=== PATIENT | female | born 1990 | race Hispanic/Latino ===

== ENCOUNTER 2017-01-21 15:52 | Emergency (ER) | payer MEDICAID ==
[2017-01-21 15:52] VITALS: BMI 41.1
[2017-01-21 16:03] VITALS: RESP 20
[2017-01-21] MEDS ORDERED: Sodium Chloride 0.9% 1,000 ML IV ONE (16:16)
[2017-01-21] MEDS ORDERED: Sodium Chloride 0.9% 1,000 ML ONE (16:38)
--- NOTE | 2017-01-21 16:38 | C.PDOC ---
History Of Present Illness 26 y/o female c/o abdominal pain, vomiting, and diarrhea for 2 days. Patient notes diarrhea that is occasionally yellow, occasionally brown, and watery but non-bloody. Patient notes a fever at 103 and being unable to eat or drink. Patient took no meds for the symptoms. Denies chest pain, palpitations, or SOB. Time Seen by Provider: 01/21/17 16:10 Chief Complaint (Nursing): GI Problem History Per: Patient History/Exam Limitations: no limitations Onset/Duration Of Symptoms: Days (2) Current Symptoms Are (Timing): Still Present Severity: Mild Location Of Pain/Discomfort: Diffuse Quality Of Discomfort: "Pain" Associated Symptoms: Fever, Vomiting, Diarrhea Additional History Per: Patient Past Medical History Reviewed: Historical Data, Nursing Documentation, Vital Signs Vital Signs: Last Vital Signs Temp 98.2 F 01/21/17 15:58 Pulse 85 01/21/17 15:58 Resp 20 01/21/17 15:58 BP 121/78 01/21/17 15:58 Pulse Ox 100 01/21/17 16:40 - Medical History PMH: Anemia (vitamin b intake), Asthma, Hyperthyroidism, Hypothyroidism Denies: Chronic Kidney Disease Surgical History: Tonsillectomy - [facility] INCISE BARTHOLIN'S GLAND (08/22/12) LOCAL DESTR OVA LES NEC (02/20/14) Family History: States: Unknown Family Hx - Social History Hx Tobacco Use: No Hx Alcohol Use: Yes Hx Substance Use: No - Immunization History Hx Tetanus Toxoid Vaccination: No Hx Influenza Vaccination: No Hx Pneumococcal Vaccination: No Review Of Systems Except As Marked, All Systems Reviewed And Found Negative. Constitutional: Positive for: Fever Cardiovascular: Negative for: Chest Pain, Palpitations Respiratory: Negative for: Shortness of Breath Gastrointestinal: Positive for: Vomiting, Abdominal Pain, Diarrhea Physical Exam - Physical Exam Appears: Non-toxic, No Acute Distress (Not too uncomfortable) Skin: Warm, Dry Head: Atraumatic, Normacephalic Oral Mucosa: Dry Cardiovascular: Rhythm Regular (Non-tachycardic), No Murmur Respiratory: Normal Breath Sounds, No Rales, No Rhonchi, No Wheezing Gastrointestinal/Abdominal: Bowel Sounds (Hypoactive), Soft, Other (No localized tenderness or guarding) Neurological/Psych: Oriented x3 ED Course And Treatment - Laboratory Results Result Diagrams: 01/21/17 16:34 01/21/17 16:34 Lab Interpretation: No Acute Changes O2 Sat by Pulse Oximetry: 100 (RA) Pulse Ox Interpretation: Normal Progress Note: Patient treated with normal saline and Zofran IV. Reevaluation Time: 17:27 Reassessment Condition: Improved (Feels much better. No further nausea.) Medical Decision Making Medical Decision Making: Plans: * Blood labs * Zofran * IV fludis * UA Disposition Counseled Patient/Family Regarding: Studies Performed, Diagnosis, Need For Followup, Rx Given - Disposition Referrals: [facility] [Outside] Disposition: HOME/ ROUTINE Disposition Time: 17:28 Condition: IMPROVED Prescriptions: Ondansetron ODT [Zofran ODT] 4 mg PO QID PRN #10 odt PRN Reason: Nausea/Vomiting Instructions: Gastroenteritis (ED) Forms: [facility] (Hungarian) - Clinical Impression Clinical Impression: Gastroenteritis - Scribe Statement The provider has reviewed the documentation as recorded by the Scribsusy lawson All medical record entries made by the Josselinibsusy were at my direction and personally dictated by me. I have reviewed the chart and agree that the record accurately reflects my personal performance of the history, physical exam, medical decision making, and the department course for this patient. I have also personally directed, reviewed, and agree with the discharge instructions and disposition.
[2017-01-21 16:41] LABS: BASO # 0.1 K/uL (0.0-0.2); BASO % 0.7 % (0.0-2.0); EOS # 0.2 K/uL (0.0-0.7); EOS % 2.4 % (0.0-4.0); HEMATOCRIT 35.6 % (34.0-47.0); LYMPH # 2.1 K/uL (1.0-4.3); LYMPH % 21.4 % (20.0-40.0); MEAN CORPUSCULAR HEMOGLOBIN 27.4 pg (27.0-31.0); MEAN PLATELET VOLUME 9.1 fL (7.2-11.7); MONO # 0.5 K/uL (0.0-0.8); MONO % 5.4 % (0.0-10.0); NRBC % 0.1 % (0.0-2.0); RED CELL DISTRIBUTION WIDTH 14.3 % (11.5-14.5); WHITE BLOOD COUNT 9.9 K/uL (4.8-10.8)
[2017-01-21 16:52] LABS: CHLORIDE 101 mmol/L (98-107); POTASSIUM 3.9 mmol/L (3.6-5.2); SODIUM 135 mmol/L (132-148)
[2017-01-21 16:54] LABS: AST/SGOT 24 U/L (14-36); BILIRUBIN,TOTAL 0.4 mg/dL (0.2-1.3); CARBON DIOXIDE 23 mmol/L (22-30); GFR AFRICAN-AMERICAN > 60
[2017-01-21 16:55] LABS: ALB/GLOB RATIO 1.1 (1.0-2.1); ALKALINE PHOSPHATASE 76 U/L (38-126); ALT/SGPT 48 U/L (9-52); BLOOD UREA NITROGEN 11 mg/dL (7-17); CALCIUM 9.1 mg/dl (8.6-10.4); GLUCOSE,RANDOM 84 mg/dL (65-105); TOTAL PROTEIN 8.1 g/dL (6.3-8.3)
[2017-01-21 17:12] LABS: RBC URINE 1 /hpf (0-3); URINE BACTERIA RARE (<OCC); URINE BILIRUBIN NEGATIVE (NEGATIVE); URINE BLOOD NEGATIVE (NEGATIVE); URINE COLOR Yellow (YELLOW); URINE GLUCOSE (UA) NORMAL (Normal); URINE KETONE NEGATIVE (NEGATIVE); URINE LEUKOCYTE ESTERASE TRACE Leu/uL (Negative); URINE PROTEIN NEGATIVE (NEGATIVE); URINE UROBILINOGEN NORMAL mg/dL (0.2-1.0); WBC URINE 12 /hpf (0-5)
[2017-01-21 17:40] VITALS: BP 104/68; PULSE 78; TEMP 97.9; O2SAT 99
== END 2017-01-21 17:59 | disposition home or self-care (01) ==
LOC: C.ER 15:52
DX: K52.9 Noninfective gastroenteritis and colitis, unspecified (principal)
CPT/HCPCS: 80053; 81001; 83690; 84703; 85025; 96361; 96374; 99285; J2405; J7040

== ENCOUNTER 2017-04-09 21:11 | Emergency (ER) | payer MEDICAID ==
[2017-04-09 21:11] VITALS: BMI 41.1
[2017-04-09 21:21] VITALS: RESP 16; TEMP 97.8
[2017-04-09] MEDS ORDERED: Albuterol 0.083% Inhal Sol (2.5 mg/3 mL) UD INH STA (22:48)
--- NOTE | 2017-04-09 22:52 | C.PDOC ---
History Of Present Illness <Jazz Romano - Last Filed: 04/10/17 00:05> <Cesar Watkins - Last Filed: 04/10/17 02:52> 27 year old female with a Hx of asthma and hypothyroidism presents to the ER with a complaint of generalized continuous pleuritic chest pain that worsens with inspiration. Patient states she did not take any of her nebulizer treatments and has not required any treatments for years. Denies use of control, cough, sputum, fever, abdominal pain, nausea, or vomiting. Patient is a low risk by PERC criteria. (Jazz Romano) History Per: Patient History/Exam Limitations: no limitations Onset/Duration Of Symptoms: Days Current Symptoms Are (Timing): Still Present Quality: "Pain" Associated Symptoms: denies: Nausea, Dyspnea, Diaphoresis, Syncope Modifying Factors: None Exacerbating Factors: Deep Breathing Alleviating Factors: None Recent travel outside of the [place]: No <Jazz Romano - Last Filed: 04/10/17 00:05> <Cesar Watkins - Last Filed: 04/10/17 02:52> Chief Complaint (Nursing): Chest Pain Past Medical History Reviewed: Historical Data, Nursing Documentation, Vital Signs - Medical History PMH: Anemia (vitamin b intake), Asthma, Hyperthyroidism, Hypothyroidism Surgical History: Tonsillectomy Family History: States: Unknown Family Hx - Social History Hx Tobacco Use: No Hx Alcohol Use: Yes Hx Substance Use: No - Immunization History Hx Tetanus Toxoid Vaccination: No Hx Influenza Vaccination: Yes Hx Pneumococcal Vaccination: Yes <Jazz Romano - Last Filed: 04/10/17 00:05> Vital Signs: Last Vital Signs Temp 97.8 F 04/09/17 21:17 Pulse 64 04/10/17 02:17 Resp 16 04/10/17 02:17 BP 104/63 04/10/17 02:17 Pulse Ox 99 04/10/17 02:17 - [facility] Procedures INCISE BARTHOLIN'S GLAND (08/22/12) LOCAL DESTR OVA LES NEC (02/20/14) Review Of Systems Constitutional: Negative for: Fever, Chills Respiratory: Positive for: Pleuritic Pain. Negative for: Cough, Sputum Gastrointestinal: Negative for: Nausea, Vomiting, Abdominal Pain <Jazz Romano - Last Filed: 04/10/17 00:05> Physical Exam - Physical Exam Appears: Non-toxic, No Acute Distress Skin: Normal Color, Warm, Dry Head: Atraumatic, Normacephalic Eye(s): bilateral: Normal Inspection Ear(s): Bilateral: Normal Nose: Normal Oral Mucosa: Moist Throat: Normal, No Erythema, No Exudate Neck: Normal, Supple Chest: Symmetrical Cardiovascular: Rhythm Regular Respiratory: No Rales, No Rhonchi, No Wheezing, Other (Diminished breath sounds) Gastrointestinal/Abdominal: Soft, No Tenderness Extremity: No Pedal Edema, Capillary Refill (<2 seconds) Neurological/Psych: Oriented x3, Normal Speech <Jazz Romano - Last Filed: 04/10/17 00:05> ED Course And Treatment ECG: Interpreted By Me ECG Rhythm: Sinus Rhythm ECG Interpretation: Normal, No Acute Changes, No Changes From Prior Interpretation Of ECG: NSR at 71 BPM,no acute STTW changes,no ectopy O2 Sat by Pulse Oximetry: 100 (Room air) Pulse Ox Interpretation: Normal <Jazz Romano - Last Filed: 04/10/17 00:05> - Laboratory Results Result Diagrams: 04/10/17 00:27 04/10/17 00:27 ECG: Interpreted By Me Pulse Ox Interpretation: Normal - Radiology CXR: Interpreted by Me, Viewed By Me CXR Interpretation: No: Infiltrates, Fracture, Pnemothorax <Cesar Watkins - Last Filed: 04/10/17 02:52> Medical Decision Making <Jazz Romano - Last Filed: 04/10/17 00:05> <Cesar Watkins - Last Filed: 04/10/17 02:52> Medical Decision Making: Impression: atypical chest pain, will administer albuterol nebulizer treatment, check EKG, and peak flow. (Jazz Romano) Disposition <Jazz Romano - Last Filed: 04/10/17 00:05> Counseled Patient/Family Regarding: Studies Performed, Diagnosis, Need For Followup, Rx Given - Disposition Disposition Time: 01:00 <Cesar Watkins - Last Filed: 04/10/17 02:52> - Disposition Referrals: [facility] [Outside] [facility] [Outside] Disposition: HOME/ ROUTINE Condition: FAIR Additional Instructions: Please return if symptoms recur Prescriptions: Albuterol HFA [Ventolin HFA 90 mcg/actuation (8 g)] 2 puff IH [id number] #1 puff Prednisone [Deltasone] 20 mg PO DAILY #5 tablet Instructions: Asthma (DC) Forms: [facility] (Slovak) - Clinical Impression Clinical Impression: Asthma exacerbation, Pleuritic chest pain - Scribe Statement The provider has reviewed the documentation as recorded by the Scribe <Jazz Romano - Last Filed: 04/10/17 00:05> <Cesar Watkins - Last Filed: 04/10/17 02:52> - Scribe Statement Bladimir Jang All medical record entries made by the Scribe were at my direction and personally dictated by me. I have reviewed the chart and agree that the record accurately reflects my personal performance of the history, physical exam, medical decision making, and the department course for this patient. I have also personally directed, reviewed, and agree with the discharge instructions and disposition. (Jazz Romano)
[2017-04-09] MEDS ORDERED: Albuterol 0.083% Inhal Sol (2.5 mg/3 mL) UD ONE (23:48)
[2017-04-10 00:32] LABS: BASO # 0.1 K/uL (0.0-0.2); BASO % 0.7 % (0.0-2.0); EOS # 0.2 K/uL (0.0-0.7); EOS % 2.6 % (0.0-4.0); HEMOGLOBIN 11.9 g/dL (11.0-16.0); LYMPH # 2.5 K/uL (1.0-4.3); LYMPH % 31.3 % (20.0-40.0); MEAN CELL VOLUME 82.7 fL (81.0-99.0); MEAN CORPUSCULAR HEMOGLOBIN 26.8 pg (27.0-31.0); MEAN CORPUSCULAR HGB CONC 32.4 g/dL (33.0-37.0); MEAN PLATELET VOLUME 9.1 fL (7.2-11.7); MONO # 0.4 K/uL (0.0-0.8); MONO % 5.1 % (0.0-10.0); NEUT # 4.8 K/uL (1.8-7.0); NEUT % 60.3 % (50.0-75.0); RBC 4.46 Mil/uL (3.80-5.20); RED CELL DISTRIBUTION WIDTH 14.4 % (11.5-14.5)
[2017-04-10 01:01] LABS: ALB/GLOB RATIO 1.2 (1.0-2.1); ALBUMIN 4.1 g/dL (3.5-5.0); ALT/SGPT 37 U/L (9-52); AST/SGOT 31 U/L (14-36); BLOOD UREA NITROGEN 8 mg/dL (7-17); CALCIUM 8.4 mg/dl (8.6-10.4); GFR AFRICAN-AMERICAN > 60; GFR NON-AFRICAN AMERICAN > 60
[2017-04-10] MEDS ORDERED: Iodixanol 320 MG/ML 100 ML BOTTLE IV ONE (01:31)
[2017-04-10 02:18] VITALS: BP 104/63; PULSE 64
--- NOTE | 2017-04-10 02:40 | CT ---
EXAM: CT Angiography Chest With Intravenous Contrast CLINICAL HISTORY: 27 years old, female; Pain; Chest pain and other: Elevated d-dimer; Additional info: Elevated d dimer, SOB TECHNIQUE: Axial computed tomographic angiography images of the chest with intravenous contrast using pulmonary embolism protocol. All CT scans at this facility use one or more dose reduction techniques, viz.: automated exposure control; ma/kV adjustment per patient size (including targeted exams where dose is matched to indication; i.e. head); or iterative reconstruction technique. 1000 images are submitted. MIP reconstructed images were created and reviewed. Coronal and sagittal reformatted images were created and reviewed. CONTRAST: 100 mL of [id number] administered intravenously. COMPARISON: No relevant prior studies available. FINDINGS: Pulmonary arteries: No CT evidence for pulmonary embolus. Aorta: No acute findings. No thoracic aortic aneurysm. Lungs: There is mild haziness of the lungs. Correlation with patient's hydration status is recommended. Low lung volumes. No mass. Pleural space: Unremarkable. No significant effusion. No pneumothorax. Heart: Unremarkable. No cardiomegaly. No significant pericardial effusion. Bones/joints: No acute fracture. No dislocation. Soft tissues: Posterior back edema. Lymph nodes: Unremarkable. No enlarged lymph nodes. Liver: Hepatomegaly measuring 20 cm. Gallbladder and bile ducts: Partially distended gallbladder. Adrenals: Normal adrenal glands. IMPRESSION: 1. No CT evidence for pulmonary embolus. 2. There is mild haziness of the lungs. Correlation with patient's hydration status is recommended. 3. Hepatomegaly.
--- NOTE | 2017-04-10 08:29 | RAD ---
HISTORY: chest pain COMPARISON: Chest x-ray performed 08/01/15 TECHNIQUE: Chest, one view. FINDINGS: Examination markedly limited by habitus and hypoinflation. LUNGS: No focal consolidation. Please note that chest x-ray has limited sensitivity for the detection of pulmonary masses. PLEURA: No significant pleural effusion identified. No definite pneumothorax . CARDIOVASCULAR: The cardiomediastinal silhouette appears within normal limits of size. OSSEOUS STRUCTURES: No acute osseous abnormality identified. VISUALIZED UPPER ABDOMEN: Elevation of the right hemidiaphragm. OTHER FINDINGS: None. IMPRESSION: Hypoinflation.
[2017-04-11 00:52] VITALS: O2SAT 100
--- NOTE | 2017-04-13 04:42 | CARD ---
APPROVED REPORT EKG Measurement Heart [id number] <Conclusion> Normal sinus rhythm Normal ECG
== END 2017-04-10 03:09 | disposition home or self-care (01) ==
LOC: C.ER 21:11
DX: J45.901 Unspecified asthma with (acute) exacerbation (principal); R07.81 Pleurodynia
CPT/HCPCS: 71045; 71275; 80053; 84484; 85025; 85378; 93005; 99285; Q9967

== ENCOUNTER 2017-05-29 14:07 | Emergency (ER) | payer SELFPAY ==
[2017-05-29 14:14] VITALS: BMI 42.0
[2017-05-29 14:18] VITALS: BP 134/90; PULSE 72; TEMP 98.9
--- NOTE | 2017-05-29 15:18 | C.PDOC ---
Time Seen by Provider: 05/29/17 14:41 Chief Complaint (Nursing): Dental Pain Past Medical History Vital Signs: Last Vital Signs Temp 98.9 F 05/29/17 14:13 Pulse 72 05/29/17 14:13 Resp 16 05/29/17 14:13 BP 134/90 05/29/17 14:13 Pulse Ox 99 05/29/17 14:13 - Medical History PMH: Anemia (vitamin b intake), Asthma, Hyperthyroidism, Hypothyroidism Denies: Chronic Kidney Disease Surgical History: Tonsillectomy - [facility] Procedures INCISE BARTHOLIN'S GLAND (08/22/12) LOCAL DESTR OVA LES NEC (02/20/14) Family History: States: Unknown Family Hx - Social History Hx Tobacco Use: No Hx Alcohol Use: Yes Hx Substance Use: No - Immunization History Hx Tetanus Toxoid Vaccination: No Hx Influenza Vaccination: Yes Hx Pneumococcal Vaccination: Yes ED Course And Treatment O2 Sat by Pulse Oximetry: 99 Disposition Counseled Patient/Family Regarding: Diagnosis, Need For Followup, Rx Given - Disposition Disposition: HOME/ ROUTINE Disposition Time: 15:16 Condition: STABLE Additional Instructions: follow up with your doctor in 2 days call to make an appointment take medications as prescribed return to ER if symptoms worsens or progress Prescriptions: Clindamycin [Cleocin] 300 mg PO QID #40 cap Naproxen [Naprosyn] 500 mg PO BID PRN #16 tab PRN Reason: Pain, Moderate (4-7) Instructions: Dental Pain (DC), Shoulder Sprain (DC) Forms: [facility] (Gibraltarian), General Discharge Instructions - Clinical Impression Clinical Impression: Dental caries, Shoulder pain
--- NOTE | 2017-05-29 15:18 | C.PDOC ---
History Of Present Illness 27 year old female presents to the emergency department with 2 day history of toothache and right posterior shoulder pain. Denies blunt trauma or injury. States she has had a bad tooth for some time. No fevers or chills. Not taking any medications for pain. Time Seen by Provider: 05/29/17 14:41 Chief Complaint (Nursing): Dental Pain History Per: Patient History/Exam Limitations: no limitations Onset/Duration Of Symptoms: Days (x2) Current Symptoms Are (Timing): Still Present Past Medical History Reviewed: Historical Data, Nursing Documentation, Vital Signs Vital Signs: Last Vital Signs Temp 98.9 F 05/29/17 14:13 Pulse 72 05/29/17 14:13 Resp 16 05/29/17 14:13 BP 134/90 05/29/17 14:13 Pulse Ox 99 05/29/17 15:21 - Medical History PMH: Anemia (vitamin b intake), Asthma, Hyperthyroidism, Hypothyroidism Denies: Chronic Kidney Disease Surgical History: Tonsillectomy - [facility] Procedures INCISE BARTHOLIN'S GLAND (08/22/12) LOCAL DESTR OVA LES NEC (02/20/14) Family History: States: No Known Family Hx - Social History Hx Tobacco Use: No Hx Alcohol Use: Yes Hx Substance Use: No - Immunization History Hx Tetanus Toxoid Vaccination: No Hx Influenza Vaccination: Yes Hx Pneumococcal Vaccination: Yes Review Of Systems ENT: Positive for: Other (Toothache) Musculoskeletal: Positive for: Shoulder Pain Physical Exam - Physical Exam Appears: Non-toxic, No Acute Distress Skin: Normal Color, Warm, Dry Head: Atraumatic, Normacephalic Eye(s): bilateral: Normal Inspection Nose: Normal Teeth: Caries (Dental cavity/broken tooth shown at tooth #4) Gingiva: No Swelling, No Abscess Chest: Symmetrical Cardiovascular: Rhythm Regular Respiratory: Normal Breath Sounds, No Accessory Muscle Use Extremity: Tenderness (to right posterior shoulder), No Deformity, No Swelling, No Other (erythema or cellulitic process) Neurological/Psych: Oriented x3, Normal Speech ED Course And Treatment O2 Sat by Pulse Oximetry: 99 (RA) Pulse Ox Interpretation: Normal Medical Decision Making Medical Decision Making: Assessment: Tooth cavity, Shoulder pain Patient treated with Motrin and Clindamycin in the ED. Will be discharged home with naproxen and clindamycin. Advised to follow up with a dentist. Return to the ED if symptoms worsen or persist. Disposition Counseled Patient/Family Regarding: Diagnosis, Need For Followup, Rx Given - Disposition Disposition: HOME/ ROUTINE Disposition Time: 15:17 Condition: STABLE Additional Instructions: follow up with your doctor in 2 days call to make an appointment take medications as prescribed return to ER if symptoms worsens or progress Prescriptions: Clindamycin [Cleocin] 300 mg PO QID #40 cap Naproxen [Naprosyn] 500 mg PO BID PRN #16 tab PRN Reason: Pain, Moderate (4-7) Instructions: Shoulder Sprain (DC), Dental Pain (DC) Forms: General Discharge Instructions, [facility] (Singaporean) - POA Present On Arrival: None - Clinical Impression Clinical Impression: Dental caries, Shoulder pain - Scribe Statement The provider has reviewed the documentation as recorded by the Scribe (Haley Hawthorne) Provider Attestation: All medical record entries made by the Scribe were at my direction and personally dictated by me. I have reviewed the chart and agree that the record accurately reflects my personal performance of the history, physical exam, medical decision making, and the department course for this patient. I have also personally directed, reviewed, and agree with the discharge instructions and disposition.
[2017-05-29 15:34] VITALS: RESP 18
[2017-05-30 07:25] VITALS: O2SAT 99
== END 2017-05-29 15:31 | disposition home or self-care (01) ==
LOC: C.ER 14:07
DX: K02.9 Dental caries, unspecified (principal); M25.511 Pain in right shoulder

== ENCOUNTER 2017-11-30 22:22 | Emergency (ER) | payer SELFPAY ==
[2017-11-30 22:23] VITALS: BMI 42.0
[2017-11-30] MEDS ORDERED: Sodium Chloride 0.9% 1,000 ML IV ONE (22:45)
--- NOTE | 2017-11-30 22:47 | C.PDOC ---
History Of Present Illness 27 year old female morbidly obese with PMHx of hyperthyroidism presents to the ED for evaluation of left adnexal pain for the past week. Patient states the pain is associated with vomiting, diarrhea. Patient denies fever, chills, dysuria, hematuria, vaginal bleeding, vaginal discharge. Time Seen by Provider: 11/30/17 22:42 Chief Complaint (Nursing): Abdominal Pain History Per: Patient History/Exam Limitations: no limitations Onset/Duration Of Symptoms: Days (week) Current Symptoms Are (Timing): Still Present Location Of Pain/Discomfort: Suprapubic Radiation Of Pain To:: None Quality Of Discomfort: "Pain" Associated Symptoms: Vomiting, Diarrhea. denies: Loss Of Appetite, Urinary Symptoms Exacerbating Factors: None Alleviating Factors: None Recent travel outside of the [place]: No Additional History Per: Patient Abnormal Vaginal Bleeding: No Past Medical History Reviewed: Historical Data, Nursing Documentation, Vital Signs Vital Signs: Last Vital Signs Temp 98.2 F 12/01/17 01:33 Pulse 75 12/01/17 01:33 Resp 22 12/01/17 01:33 BP 100/64 12/01/17 01:33 Pulse Ox 96 12/01/17 02:43 - Medical History PMH: Anemia (vitamin b intake), Asthma, Hyperthyroidism, Hypothyroidism Denies: Chronic Kidney Disease Surgical History: Tonsillectomy - [facility] Procedures INCISE BARTHOLIN'S GLAND (08/22/12) LOCAL DESTR OVA LES NEC (02/20/14) Family History: States: Unknown Family Hx - Social History Hx Tobacco Use: No Hx Alcohol Use: Yes Hx Substance Use: No - Immunization History Hx Tetanus Toxoid Vaccination: No Hx Influenza Vaccination: Yes Hx Pneumococcal Vaccination: Yes Review Of Systems Except As Marked, All Systems Reviewed And Found Negative. Gastrointestinal: Positive for: Vomiting, Abdominal Pain, Diarrhea Physical Exam - Physical Exam Appears: Non-toxic, No Acute Distress Skin: Normal Color, Warm, Dry Head: Atraumatic, Normacephalic Eye(s): bilateral: Normal Inspection Neck: Normal ROM, Supple Chest: Symmetrical Cardiovascular: Rhythm Regular Respiratory: Normal Breath Sounds, No Rales, No Rhonchi, No Wheezing Gastrointestinal/Abdominal: Soft, No Tenderness, No Guarding, No Rebound Pelvic: Adnexal Tenderness (left) Extremity: Normal ROM, No Tenderness, No Swelling Neurological/Psych: Oriented x3, Normal Speech Gait: Steady ED Course And Treatment - Laboratory Results Result Diagrams: 11/30/17 23:18 11/30/17 23:18 O2 Sat by Pulse Oximetry: 96 (ON RA) Pulse Ox Interpretation: Normal Medical Decision Making Medical Decision Making: suspectr ovarian cyst vs uti. no clincal concern for torsion Plan: * Labs * IV fluids * Tylenol 975 mg PO * Zofran 4 mg IVP * Transvaginal US * UA Patient is on her phone in no acute distress abd soft pain improved. pt advised outpt fu. Disposition - Disposition Referrals: [facility] [Outside] [facility] [Outside] [facility] [Outside] Disposition: HOME/ ROUTINE Disposition Time: 01:00 Condition: STABLE Additional Instructions: follow up with clinic. return to er with worsening symptoms or concerns. Prescriptions: Nitrofurantoin Macrocrystals [Macrobid] 100 mg PO BID #14 cap Instructions: Urinary Tract Infections in Adults, Ovarian Cysts, Acute Abdomen (Belly Pain) Forms: [facility] (Vietnamese) - Clinical Impression Clinical Impression: Ovarian cyst - Scribe Statement The provider has reviewed the documentation as recorded by the Scribe Yoan Ospina All medical record entries made by the Scribe were at my direction and personally dictated by me. I have reviewed the chart and agree that the record accurately reflects my personal performance of the history, physical exam, medical decision making, and the department course for this patient. I have also personally directed, reviewed, and agree with the discharge instructions and disposition.
[2017-11-30] MEDS ORDERED: Sodium Chloride 0.9% 1,000 ML ONE (23:01)
[2017-11-30 23:20] LABS: BASO # 0.1 K/uL (0.0-0.2); BASO % 0.8 % (0.0-2.0); EOS # 0.1 K/uL (0.0-0.7); EOS % 1.4 % (0.0-4.0); HEMOGLOBIN 11.8 g/dL (11.0-16.0); LYMPH # 1.7 K/uL (1.0-4.3); LYMPH % 26.2 % (20.0-40.0); MEAN CELL VOLUME 83.1 fL (81.0-99.0); MEAN CORPUSCULAR HEMOGLOBIN 28.2 pg (27.0-31.0); MEAN CORPUSCULAR HGB CONC 33.9 g/dL (33.0-37.0); MEAN PLATELET VOLUME 9.5 fL (7.2-11.7); MONO # 0.3 K/uL (0.0-0.8); MONO % 4.1 % (0.0-10.0); NEUT # 4.3 K/uL (1.8-7.0); NEUT % 67.5 % (50.0-75.0); NRBC % 0.1 % (0.0-2.0); RBC 4.17 Mil/uL (3.80-5.20); WHITE BLOOD COUNT 6.4 K/uL (4.8-10.8)
[2017-11-30 23:29] LABS: PROTHROMBIN TIME 11.1 SECONDS (9.7-12.2)
[2017-11-30 23:34] LABS: ALB/GLOB RATIO 1.3 (1.0-2.1); ALBUMIN 4.2 g/dL (3.5-5.0); ALT/SGPT 77 U/L (9-52); AST/SGOT 46 U/L (14-36); BLOOD UREA NITROGEN 10 mg/dL (7-17); CALCIUM 9.2 mg/dl (8.6-10.4); GFR NON-AFRICAN AMERICAN > 60; LIPASE 70 U/L (23-300)
[2017-11-30 23:36] LABS: HCG,QUALITATIVE URINE NEGATIVE (NEGATIVE)
[2017-11-30 23:39] LABS: SQUAMOUS EPITHIAL 23 /hpf (0-5); URINE BACTERIA FEW (<OCC); URINE BILIRUBIN NEGATIVE (NEGATIVE); URINE BLOOD NEGATIVE (NEGATIVE); URINE CLARITY Hazy (Clear); URINE COLOR Yellow (YELLOW); URINE GLUCOSE (UA) NORMAL (Normal); URINE LEUKOCYTE ESTERASE 2+ Leu/uL (Negative); URINE PROTEIN NEGATIVE (NEGATIVE); URINE UROBILINOGEN NORMAL mg/dL (0.2-1.0)
[2017-12-01 01:34] VITALS: BP 100/64; PULSE 75; RESP 22; TEMP 98.2
[2017-12-01 02:44] VITALS: O2SAT 96
--- NOTE | 2017-12-01 12:27 | US ---
Pelvic ultrasound History: Pelvic pain. Comparison: None available. Technique: Real-time sonography was performed through the pelvis utilizing transabdominal and transvaginal techniques. Findings: Uterus: 8.4 x 4.5 x 5.2 centimeters. Heterogeneous echotexture. Anteverted. Endometrium measures 7 millimeters, within normal limits. Nabothian cyst noted at the level of the cervix. No free fluid in pelvic cul-de-sac. Right ovary: 2.9 x 2.9 x 2.9 centimeters. Normal flow. Left ovary: 4.5 x 3.0 x 5.0 centimeters. Normal flow. Hypoechoic cyst measuring 3.4 x 2.4 x 3.4 centimeters. Impression: 3.4 centimeter left ovarian cyst. 4-6 week interval followup may be helpful if clinically indicated. These findings were preliminarily reported at 1:19 a.m. on 12/01/[address] Johnie Delgado from [facility]
== END 2017-12-01 01:47 | disposition home or self-care (01) ==
LOC: C.ER 22:22
DX: N83.209 Unspecified ovarian cyst, unspecified side (principal)
CPT/HCPCS: 76830; 76856; 80053; 81001; 83690; 84703; 85025; 85610; 85730; 96361; 96374; 99285; J2405; J7030

== ENCOUNTER 2018-01-25 12:45 | Emergency (ER) | payer MEDICAID, OTHER ==
[2018-01-25 12:56] VITALS: BP 132/79; PULSE 81; RESP 18; TEMP 98.5; O2SAT 98
[2018-01-25 12:57] VITALS: BMI 43.7
[2018-01-25] MEDS ORDERED: Albuterol-Ipratrop 3 mg / 0.5 (3 ml) UD INH STA (13:20)
[2018-01-25] MEDS ORDERED: Albuterol 0.083% Inhal Sol (2.5 mg/3 mL) UD ONE (13:28)
[2018-01-25 13:53] LABS: HCG,QUALITATIVE URINE NEGATIVE (NEGATIVE)
[2018-01-25 14:28] LABS: SQUAMOUS EPITHIAL 5 /hpf (0-5); URINE BACTERIA FEW (<OCC); URINE BILIRUBIN NEGATIVE (NEGATIVE); URINE BLOOD NEGATIVE (NEGATIVE); URINE CALCIUM OXALATE CRYSTALS MANY /hpf (<OCC); URINE CLARITY Hazy (Clear); URINE COLOR Amber (YELLOW); URINE GLUCOSE (UA) NORMAL (Normal); URINE LEUKOCYTE ESTERASE 3+ Leu/uL (Negative); URINE PROTEIN 1+ mg/dL (NEGATIVE); WBC CLUMPS FEW /hpf
--- NOTE | 2018-01-25 14:46 | C.PDOC ---
History Of Present Illness 27 year old female presents to the ED for evaluation of a dry, non-productive cough and shortness of breath x 3 days. Patient is also complaining of right- sided chest pain. Patient states her current symptoms are similar to her prior asthma exacerbation. Patient states she ran out of her puffer inhaler and does not have a nebulizer machine at home. She has history of many ER visits for the same. Patient denies fever, chills, or prior hospitalizations or intubations. Time Seen by Provider: 01/25/18 13:14 Chief Complaint (Nursing): Abdominal Pain History Per: Patient History/Exam Limitations: no limitations Onset/Duration Of Symptoms: Days (3) Current Symptoms Are (Timing): Still Present Associated Symptoms: Chest Pain. denies: Fever, Chills Additional History Per: Patient Past Medical History Reviewed: Historical Data, Nursing Documentation, Vital Signs Vital Signs: Last Vital Signs Temp 98.5 F 01/25/18 13:02 Pulse 81 01/25/18 13:02 Resp 18 01/25/18 13:02 BP 132/79 01/25/18 13:02 Pulse Ox 98 01/25/18 13:02 - Medical History PMH: Anemia (vitamin b intake), Asthma, Hyperthyroidism, Hypothyroidism Denies: Chronic Kidney Disease Surgical History: Tonsillectomy - [facility] Procedures INCISE BARTHOLIN'S GLAND (08/22/12) LOCAL DESTR OVA LES NEC (02/20/14) Family History: States: Unknown Family Hx - Social History Hx Tobacco Use: No Hx Alcohol Use: Yes Hx Substance Use: No - Immunization History Hx Tetanus Toxoid Vaccination: No Hx Influenza Vaccination: No Hx Pneumococcal Vaccination: No Review Of Systems Constitutional: Negative for: Fever, Chills Cardiovascular: Positive for: Chest Pain (right-sided ) Respiratory: Positive for: Cough, Shortness of Breath. Negative for: Sputum Physical Exam - Physical Exam Appears: Non-toxic, No Acute Distress, Other (morbidly obese, anxious appearing ) Skin: Normal Color, Warm, Dry, No Rash Head: Atraumatic, Normacephalic Eye(s): bilateral: Normal Inspection Oral Mucosa: Moist Neck: Supple Chest: Symmetrical, No Deformity, Tenderness (digitally and positionally reproducible to right parasternal border ) Cardiovascular: Rhythm Regular, No Murmur Respiratory: No Wheezing, Other (tubular breath sounds noted ) Extremity: Normal ROM, Capillary Refill (less than 2 seconds ) Neurological/Psych: Oriented x3, Normal Speech, Normal Cognition ED Course And Treatment - Laboratory Results Lab Interpretation: Abnormal (ua with + wBC's no leuk est, asymptomatic pyuria) Urine POC: Negative O2 Sat by Pulse Oximetry: 98 Pulse Ox Interpretation: Normal Progress Note: Bloodwork and urinalysis ordered. Albuterol INH and Prednisone PO given. Reevaluation Time: 14:44 Reassessment Condition: Improved Medical Decision Making Medical Decision Making: anxiety outpatient f/u asthma; nebs for nebs machine@ home no steroids needed now R parasternal costochondritis prednisone will help Asymptomatic pyuria defer tx dirty catch hypothyroidism [facility] and synthroid may adversely affect anxiety disorder. Disposition Doctor Will See Patient In The: Office Counseled Patient/Family Regarding: Studies Performed, Diagnosis - Disposition Referrals: [facility] [Outside] [facility] [Outside] [facility] [Outside] [facility] [Outside] Kole Toth MD [Staff Provider] - Disposition: HOME/ ROUTINE Disposition Time: 14:00 Condition: GOOD Additional Instructions: anxiety outpatient f/u contact [facility] for further tx/eval asthma; nebs for nebs machine@ home no steroids needed now TWO ampules of Duoneb liquid with your inhaler machine, 4-5x/day Albuterol puffer always with the Aerochamber Spacer (plastic tube) makes it more effective R parasternal costochondritis prednisone will help no heavy lifting for 1 week Asymptomatic pyuria defer tx dirty catch hypothyroidism outpatient [facility] for Endo and synthroid may adversely affect anxiety disorder. Sleep Apnea; Consider Sleep Study Call Dr. Toth- [facility] [employer], to schedule a sleep study here @ [facility]. Will help with anxiety and weigh loss. Prescriptions: RX: Albuterol HFA [Ventolin HFA 90 mcg/actuation (8 g)] 0.09 mg IH 5XD #1 puff Albuterol/Ipratropium [Duoneb 3 MG/3 Ml-0.5 MG/3 Ml 3 Ml] 6 ml IH Q4H PRN #100 neb PRN Reason: asthma Spacer, Inhalation [Aerochamber] 1 dev IH DAILY #1 dev Instructions: Asthma in Adults, Costochondritis Forms: [facility] (Mauritanian) - Clinical Impression Clinical Impression: Chest wall discomfort, Asthma exacerbation - Scribe Statement The provider has reviewed the documentation as recorded by the Scribe (Machelle Chou) Provider Attestation: All medical record entries made by the Scribe were at my direction and personally dictated by me. I have reviewed the chart and agree that the record accurately reflects my personal performance of the history, physical exam, medical decision making, and the department course for this patient. I have also personally directed, reviewed, and agree with the discharge instructions and disposition.
--- NOTE | 2018-01-26 12:29 | CARD ---
APPROVED REPORT Date of service: 01/25/2018 EKG Measurement Heart [id number] <Conclusion> Normal sinus rhythm Normal ECG
== END 2018-01-25 15:10 | disposition home or self-care (01) ==
LOC: C.ER 12:45
DX: J45.901 Unspecified asthma with (acute) exacerbation (principal); R07.89 Other chest pain

== ENCOUNTER 2018-02-10 22:03 | Emergency (ER) | payer MEDICAID ==
[2018-02-10 22:03] VITALS: BMI 43.7
[2018-02-10 22:10] VITALS: BP 104/71; PULSE 78; RESP 14; TEMP 97; O2SAT 97
[2018-02-10] MEDS ORDERED: Naproxen 550 mg Tab PO STA ×2 (22:39)
[2018-02-10] MEDS ORDERED: Naproxen 550 mg Tab PO ONE (22:43)
--- NOTE | 2018-02-10 22:45 | C.PDOC ---
History Of Present Illness 27 year old female presents to the ED c/o right shoulder, right upper arm pain that started yesterday. Patient states she accidentally walked into a wall injuring her right shoulder. Patient did not take any OTC pain medications. Patient denies headache, fall, LOC, neck pain, rash, weakness, numbness. Time Seen by Provider: 02/10/18 22:30 Chief Complaint (Nursing): Upper Extremity Problem/Injury History Per: Patient History/Exam Limitations: no limitations Onset/Duration Of Symptoms: Days Current Symptoms Are (Timing): Still Present Quality: "Pain" Recent travel outside of the [place]: No Additional History Per: Patient Past Medical History Reviewed: Historical Data, Nursing Documentation, Vital Signs Vital Signs: Last Vital Signs Temp 97 F L 02/10/18 22:08 Pulse 78 02/10/18 22:08 Resp 14 02/10/18 22:08 BP 104/71 02/10/18 22:08 Pulse Ox 97 02/10/18 22:08 - Medical History PMH: Anemia (vitamin b intake), Asthma, Hyperthyroidism, Hypothyroidism Denies: Chronic Kidney Disease Surgical History: Tonsillectomy - [facility] Procedures INCISE BARTHOLIN'S GLAND (08/22/12) LOCAL DESTR OVA LES NEC (02/20/14) Family History: States: Unknown Family Hx - Social History Hx Tobacco Use: No Hx Alcohol Use: Yes Hx Substance Use: No - Immunization History Hx Tetanus Toxoid Vaccination: No Hx Influenza Vaccination: No Hx Pneumococcal Vaccination: No Review Of Systems Constitutional: Negative for: Fever, Chills Cardiovascular: Negative for: Chest Pain Respiratory: Negative for: Shortness of Breath Gastrointestinal: Negative for: Nausea, Vomiting Musculoskeletal: Positive for: Shoulder Pain, Arm Pain Skin: Negative for: Rash Neurological: Negative for: Weakness, Numbness, Headache, Dizziness Physical Exam - Physical Exam Appears: Non-toxic, No Acute Distress Skin: Normal Color, Warm, Dry Head: Atraumatic, Normacephalic Eye(s): bilateral: Normal Inspection Neck: Normal ROM, Supple Chest: Symmetrical Cardiovascular: Rhythm Regular Respiratory: Normal Breath Sounds, No Rales, No Rhonchi, No Wheezing Gastrointestinal/Abdominal: No Guarding Extremity: Normal ROM, Tenderness (right deltoid area), Capillary Refill (< 2 seconds), No Swelling (ecchymosis, erythema), Other (No clavicular tenderness) Pulses: Left Radial: Normal, Right Radial: Normal Neurological/Psych: Oriented x3, Normal Speech, Normal Cognition, Normal Motor, Normal Sensation Gait: Steady ED Course And Treatment O2 Sat by Pulse Oximetry: 97 (ON RA) Pulse Ox Interpretation: Normal Progress Note: Plan: - Naproxen 550 mg PO. On reassessment, patient is resting comfortably, and is in no acute distress. Patient was instructed to follow up with physician/clinic in 1-2 days for further evaluation. 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 - Scribe Statement The provider has reviewed the documentation as recorded by the Scribe Yoan Ospina All medical record entries made by the Josselinibsusy were at my direction and personally dictated by me. I have reviewed the chart and agree that the record accurately reflects my personal performance of the history, physical exam, medical decision making, and the department course for this patient. I have also personally directed, reviewed, and agree with the discharge instructions and disposition.
== END 2018-02-10 23:08 | disposition home or self-care (01) ==
LOC: C.ER 22:03
DX: S40.021A Contusion of right upper arm, initial encounter (principal); W22.01XA Walked into wall, initial encounter; Y92.9 Unspecified place or not applicable

== ENCOUNTER 2018-03-06 11:58 | Emergency (ER) | payer MEDICAID ==
[2018-03-06 11:58] VITALS: BMI 43.7
[2018-03-06 12:08] VITALS: BP 120/85; PULSE 79; TEMP 98.2; O2SAT 98
--- NOTE | 2018-03-06 13:34 | C.PDOC ---
History Of Present Illness 27 y/o female, with PMHx of ovarian cyst, asthma, hypothyroidism, anemia, presents to ED c/o cold, cough, congestion, runny nose, headache, and fever (Tmax 102) for the past week. She reports taking Dayquil and Nyquil without relief. She also complains of having "pain in her ovaries". Denies dysuria, hematuria, shortness of breath, or other associated symptoms. Also notes she has been taking her thyroid medications for the last 3 days, states she ran out. Pt reports history of irregular periods. Time Seen by Provider: 03/06/18 12:32 Chief Complaint (Nursing): Flu-like Symptoms History Per: Patient History/Exam Limitations: no limitations Past Medical History Reviewed: Historical Data, Nursing Documentation, Vital Signs Vital Signs: Last Vital Signs Temp 98.2 F 03/06/18 12:03 Pulse 79 03/06/18 12:03 Resp 18 03/06/18 12:03 BP 120/85 03/06/18 12:03 Pulse Ox 98 03/06/18 12:03 - Medical History PMH: Anemia (vitamin b intake), Asthma, Hyperthyroidism, Hypothyroidism Denies: Chronic Kidney Disease Surgical History: Tonsillectomy - [facility] Procedures INCISE BARTHOLIN'S GLAND (08/22/12) LOCAL DESTR OVA LES NEC (02/20/14) Family History: States: Unknown Family Hx - Social History Hx Tobacco Use: No Hx Alcohol Use: Yes Hx Substance Use: No - Immunization History Hx Tetanus Toxoid Vaccination: No Hx Influenza Vaccination: No Hx Pneumococcal Vaccination: No Review Of Systems Except As Marked, All Systems Reviewed And Found Negative. Constitutional: Positive for: Fever ENT: Positive for: Nose Discharge, Nose Congestion Cardiovascular: Positive for: Chest Pain Respiratory: Positive for: Cough. Negative for: Shortness of Breath Gastrointestinal: Negative for: Nausea, Vomiting, Abdominal Pain Neurological: Positive for: Headache. Negative for: Dizziness Physical Exam - Physical Exam Additional Physical Exam Comments: Gen: NAD, cooperative, well appearing, non-toxic. Head: NCAT. HEENT: EYES: PERRL, EOMI, conjunctiva clear, MOUTH: moist MM, posterior pharynx without erythema or exudate, uvula midline. Neck: Supple, Normal ROM. CV: (+) S1S2, RRR, no M/G/R LUNGS: CTA B/L, No W/R/R, good air movement Abd: Soft, NTTP, no guarding, rebound or rigidity. Neuro: AAO x 3, GCS 15, CN 2-12 intact, motor and sensory grossly intact, 5/5 muscle strength B/L UE's and LE's. ext: no cyanosis or edema ED Course And Treatment O2 Sat by Pulse Oximetry: 98 Medical Decision Making Medical Decision Making: Plan: Influenza AB POC urine Refill Synthroid Influenza and preg negative. Results of w/u d/w patient. Will refer to [facility] for f/u. Patient states dosage of Synthroid is 175 mcg. Pt to f/u w/clinic and RTED for new, worsening or concerning symptoms. She is agreeable w/plan and verbalized understanding. Disposition Counseled Patient/Family Regarding: Studies Performed, Diagnosis, Need For Followup - Disposition Referrals: [facility] [Outside] [facility] [Outside] Disposition: HOME/ ROUTINE Disposition Time: 13:30 Condition: GOOD Prescriptions: Levothyroxine Sodium [Synthroid] 175 mcg PO DAILY #30 tablet Instructions: Viral Upper Respiratory Infection, Adult (DC), Acute Abdomen (Belly Pain), Adult (DC) Forms: [facility] (Pashto), General Discharge Instructions - POA Present On Arrival: None - Clinical Impression Clinical Impression: URI (upper respiratory infection), Medication refill, Abdominal pain - Scribe Statement The provider has reviewed the documentation as recorded by the Scribe KP All medical record entries made by the Scribe were at my direction and personally dictated by me. I have reviewed the chart and agree that the record accurately reflects my personal performance of the history, physical exam, medical decision making, and the department course for this patient. I have also personally directed, reviewed, and agree with the discharge instructions and disposition.
[2018-03-06 13:59] VITALS: RESP 20
== END 2018-03-06 13:58 | disposition home or self-care (01) ==
LOC: C.ER 11:58
DX: Z76.0 Encounter for issue of repeat prescription (principal); J06.9 Acute upper respiratory infection, unspecified; R10.9 Unspecified abdominal pain

== ENCOUNTER 2018-04-24 14:17 | Emergency (ER) | payer MEDICAID ==
[2018-04-24 14:17] VITALS: BMI 43.7
[2018-04-24] MEDS ORDERED: Sodium Chloride 0.9% 1,000 ML IV ONE (15:12)
[2018-04-24] MEDS ORDERED: Sodium Chloride 0.9% 1,000 ML ONE (15:25)
--- NOTE | 2018-04-24 15:34 | C.PDOC ---
History Of Present Illness 28 y/o female comes in to ED complaining of epigastric abdominal pain for the past 2 days. Patient describes pain as sharp and burning, associated with nausea and vomiting. Denies diarrhea, chest pain, SOB, or other symptoms. Time Seen by Provider: 04/24/18 14:40 Chief Complaint (Nursing): Abdominal Pain History Per: Patient History/Exam Limitations: no limitations Onset/Duration Of Symptoms: Days Current Symptoms Are (Timing): Still Present Past Medical History Reviewed: Historical Data, Nursing Documentation, Vital Signs Vital Signs: Last Vital Signs Temp 97.1 F L 04/24/18 14:22 Pulse 106 H 04/24/18 14:22 Resp 20 04/24/18 14:22 BP 117/83 04/24/18 14:22 Pulse Ox 99 04/24/18 14:22 - Medical History PMH: Anemia (vitamin b intake), Asthma, Hyperthyroidism, Hypothyroidism Denies: Chronic Kidney Disease Surgical History: Tonsillectomy - [facility] Procedures INCISE BARTHOLIN'S GLAND (08/22/12) LOCAL DESTR OVA LES NEC (02/20/14) Family History: States: No Known Family Hx - Social History Hx Tobacco Use: No Hx Alcohol Use: Yes Hx Substance Use: No - Immunization History Hx Tetanus Toxoid Vaccination: No Hx Influenza Vaccination: No Hx Pneumococcal Vaccination: No Review Of Systems Except As Marked, All Systems Reviewed And Found Negative. Gastrointestinal: Positive for: Nausea, Vomiting, Abdominal Pain Physical Exam - Physical Exam Appears: Non-toxic, No Acute Distress Skin: Normal Color, Warm, Dry Head: Atraumatic, Normacephalic Eye(s): bilateral: Normal Inspection Oral Mucosa: Moist Neck: Supple Cardiovascular: Rhythm Regular, No Murmur Respiratory: Normal Breath Sounds, No Rales, No Rhonchi, No Wheezing Gastrointestinal/Abdominal: Tenderness (in epigastrium), No Guarding, No Rebound Extremity: No Pedal Edema Extremity: Bilateral: Atraumatic, Normal Color And Temperature, Normal ROM Neurological/Psych: Oriented x3, Normal Speech ED Course And Treatment - Laboratory Results Result Diagrams: 04/24/18 15:37 04/24/18 15:37 O2 Sat by Pulse Oximetry: 99 (RA) Pulse Ox Interpretation: Normal - Other Rad Obstructive XR X-Ray: Interpreted by Me Interpretation: Preliminary reading, Nonspecific gas pattern. No free air. Obstructive Series XR X-Ray: Read By Radiologist Interpretation: Findings: Mild venous congestion. Right hilar prominence. Heart size within normal limits. Few distended loops of small bowel seen within the upper abdomen. Fecal retention in the colon. Impression: Nonspecific bowel gas pattern with a few distended loops of small bowel seen within the mid and lower abdomen. - CT Scan/US Abd/Pel CT Other Rad Studies (CT/US): Read By Radiologist, Radiology Report Reviewed CT/US Interpretation: FINDINGS: LUNG BASES: The lung bases appear clear. No pleural effusions are seen. LIVER: There is slight hepatomegaly. The liver measured approximately 17.1 cm in the midclavicular line. No hepatic mass detected. GALLBLADDER AND BILE DUCTS: The gallbladder is suboptimally visua lized due to contraction. No radioopaque gallstones are detected. No biliary ductal dilatation is evident. PANCREAS: Unremarkable. SPLEEN: The spleen is at the upper limits of normal in size and measures approximately 13.3 cm from anterior to posterior pole. ADRENAL GLANDS: Unremarkable. KIDNEYS, URETERS, AND BLADDER: The kidneys appear within normal limits. There is no hydronephrosis or hydroureter. No urinary calculi are seen. STOMACH AND BOWEL: Unremarkable appearance of the stomach and bowel. No evidence of bowel obstruction. No evidence suggesting enteritis or colitis. APPENDIX: No evidence of acute appendicitis on CT examination. There is thought to be a tiny appendicolith within the appendiceal lumen. PERITONEUM: No free fluid. No free air. LYMPH NODES: No lymphadenopathy is evident. Multiple tiny periaortic retroperitoneal lymph nodes are noted without evidence of pathological enlargement. REPRODUCTIVE: The uterus appears normal in size and position. Within the right ovary, there is demonstration of a 2.8 x 2.7 cm cyst. Within the left ovary there is identified a 2.6 x 4.8 cm cyst. Consideration could be given to correlation with pelvic ultrasound evaluation for further characterization. VASCULATURE: No evidence of abdominal aortic aneurysm. BONES: No aggressive appearing osseous lesion. No acute osseous pathology evident. IMPRESSION: 1. No acute intra-abdominal or pelvic abnormality. 2. Bilateral ovarian cysts with measurements as given above. Consideration could be given to correlation with pelvic ultrasonography for further characteri zation. 3. Slight hepatomegaly. Measurement is given above. 4. The spleen is at the upper limits of normal in size. 5. Suboptimal visualization of the gallbladder subsequent to contraction. Medical Decision Making Medical Decision Making: Impression: Abdominal Pain Plan: --Labs --Obstructive Series --UA --Pepcid 20 mg IV --IV fluids 1L --Toradol 30 mg IV --Zofran 4 mg IV -- Abd/Pel CT ovarian cyst - patient states improvement. no further pain. Will discharge home to follow up with medical clinic within 2 days Disposition - Disposition Referrals: [facility] [Outside] Disposition: HOME/ ROUTINE Disposition Time: 21:40 Condition: STABLE Additional Instructions: follow up with your doctor within 2 days call to make an appointment take medications as prescribed return to ER if symptoms worsens or progress Instructions: Ovarian Cysts Forms: [facility] (Sinhala), General Discharge Instructions - Clinical Impression Clinical Impression: Ovarian cyst - Scribe Statement The provider has reviewed the documentation as recorded by the Maksim Tompkins Provider Attestation: All medical record entries made by the Josselinibsusy were at my direction and per sonally dictated by me. I have reviewed the chart and agree that the record accurately reflects my personal performance of the history, physical exam, medical decision making, and the department course for this patient. I have also personally directed, reviewed, and agree with the discharge instructions and disposition.
[2018-04-24 15:39] LABS: SQUAMOUS EPITHIAL 24 /hpf (0-5); URINE BACTERIA RARE (<OCC); URINE BILIRUBIN 1+ (NEGATIVE); URINE BLOOD 1+ (NEGATIVE); URINE CLARITY Hazy (Clear); URINE COLOR Amber (YELLOW); URINE GLUCOSE (UA) NORMAL (Normal); URINE LEUKOCYTE ESTERASE 2+ Leu/uL (Negative); URINE PROTEIN 1+ mg/dL (NEGATIVE)
[2018-04-24 15:41] LABS: BASO # 0.1 K/uL (0.0-0.2); BASO % 0.8 % (0.0-2.0); EOS # 0.1 K/uL (0.0-0.7); HEMOGLOBIN 12.3 g/dL (11.0-16.0); LYMPH # 1.7 K/uL (1.0-4.3); MEAN CELL VOLUME 85.1 fL (81.0-99.0); MEAN CORPUSCULAR HEMOGLOBIN 27.7 pg (27.0-31.0); MEAN CORPUSCULAR HGB CONC 32.5 g/dL (33.0-37.0); MEAN PLATELET VOLUME 9.4 fL (7.2-11.7); MONO # 0.5 K/uL (0.0-0.8); MONO % 5.5 % (0.0-10.0); NEUT # 6.5 K/uL (1.8-7.0); NEUT % 73.7 % (50.0-75.0); RBC 4.46 Mil/uL (3.80-5.20); RED CELL DISTRIBUTION WIDTH 14.1 % (11.5-14.5); WHITE BLOOD COUNT 8.8 K/uL (4.8-10.8)
[2018-04-24 15:54] LABS: ALB/GLOB RATIO 1.3 (1.0-2.1); ALBUMIN 4.7 g/dL (3.5-5.0); ALT/SGPT 85 U/L (9-52); AST/SGOT 68 U/L (14-36); BLOOD UREA NITROGEN 13 mg/dL (7-17); GFR NON-AFRICAN AMERICAN > 60; LIPASE 36 U/L (23-300)
[2018-04-24] MEDS ORDERED: Lidocaine 100 MG in Sodium Chloride 0.9% 100 ML IV STA (16:05)
--- NOTE | 2018-04-24 16:22 | RAD ---
Obstructive series four views HISTORY: Abdominal pain. Comparison: None available. Findings: Mild venous congestion. Right hilar prominence. Heart size within normal limits. Few distended loops of small bowel seen within the upper abdomen. Fecal retention in the colon. Impression: Nonspecific bowel gas pattern with a few distended loops of small bowel seen within the mid and lower abdomen.
[2018-04-24] MEDS ORDERED: Iodixanol 320 MG/ML 100 ML BOTTLE IV ONE (19:34)
[2018-04-24] MEDS ORDERED: DiphenhydrAMINE 50 mg/ml Inj IVP STA (19:52)
[2018-04-24] MEDS ORDERED: DiphenhydrAMINE 50 mg/ml Inj ONE (19:57)
[2018-04-24 22:25] VITALS: BP 113/76; PULSE 81; RESP 18; TEMP 97.9; O2SAT 100
--- NOTE | 2018-04-25 08:49 | CT ---
CT abdomen and pelvis HISTORY: Abdominal pain. COMPARISON: 05/10/2016 Technique: Multiple contiguous axial images were performed through the abdomen and pelvis with the use of intravenous contrast. Subsequently, sagittal and coronal reformatted images were obtained. This CT exam was performed using one or more of the following dose reduction techniques: Automated exposure control, adjustment of the mA and/or kV according to patient size, and/or use of iterative reconstruction technique. Findings: Mild atelectasis and or consolidation at the anterior aspect of the right lower lobe. 4 millimeter pulmonary nodule within the left lower lobe. No pleural or pericardial effusion. Liver at the upper limits of normal for size. Contracted gallbladder. Spleen at the upper limits of normal for size. Adrenal glands are preserved. Pancreas is preserved. Upper abdominal bowel is preserved. Right kidney: No gross calculi or hydronephrosis. Left Kidney: No gross calculi or hydronephrosis. Urinary bladder is preserved. Heterogeneous uterus. Prominent bilateral adnexal cysts measuring up to 4.5 centimeters on the left and up to 3 centimeters on the right. Fecal retention in the colon. Appendix not well visualized. No significant abdominal or pelvic lymphadenopathy. Degenerative changes in the spine. Impression: Prominent bilateral adnexal cysts measuring up to 4.5 centimeters on the left and up to 3 centimeters on the right. Correlation with pelvic ultrasound may be helpful. 4 millimeter pulmonary nodule within the left lower lobe. Follow-up chest CT in a 3 month interval may be helpful. Contracted gallbladder. Additional findings as above. A preliminary report was generated at 9:27 p.m. on 04/24/[address] Petros Mckeon from [employer]
== END 2018-04-24 22:25 | disposition home or self-care (01) ==
LOC: C.ER 14:17
DX: N83.209 Unspecified ovarian cyst, unspecified side (principal)
CPT/HCPCS: 74022; 74177; 80053; 81001; 81025; 83690; 85025; 96374; 96375; 99285; J1200; J2001; J2405; J7030; Q9967

== ENCOUNTER 2018-05-22 14:56 | Emergency (ER) | payer MEDICAID ==
[2018-05-22 14:57] VITALS: BMI 43.7
[2018-05-22 16:38] LABS: BASO % 0.5 % (0.0-2.0); EOS # 0.1 K/uL (0.0-0.7); EOS % 0.7 % (0.0-4.0); HEMOGLOBIN 12.1 g/dL (11.0-16.0); LYMPH # 1.7 K/uL (1.0-4.3); LYMPH % 20.3 % (20.0-40.0); MEAN CELL VOLUME 85.2 fL (81.0-99.0); MEAN CORPUSCULAR HEMOGLOBIN 27.8 pg (27.0-31.0); MEAN CORPUSCULAR HGB CONC 32.6 g/dL (33.0-37.0); MEAN PLATELET VOLUME 9.4 fL (7.2-11.7); MONO # 0.6 K/uL (0.0-0.8); MONO % 7.1 % (0.0-10.0); NEUT # 5.9 K/uL (1.8-7.0); NEUT % 71.4 % (50.0-75.0); RBC 4.36 Mil/uL (3.80-5.20); RED CELL DISTRIBUTION WIDTH 14.3 % (11.5-14.5); WHITE BLOOD COUNT 8.3 K/uL (4.8-10.8)
[2018-05-22 16:41] LABS: HCG,QUALITATIVE URINE NEGATIVE (NEGATIVE)
[2018-05-22 16:46] LABS: SQUAMOUS EPITHIAL 44 /hpf (0-5); URINE BACTERIA RARE (<OCC); URINE BILIRUBIN NEGATIVE (NEGATIVE); URINE BLOOD NEGATIVE (NEGATIVE); URINE CLARITY Hazy (Clear); URINE COLOR Yellow (YELLOW); URINE GLUCOSE (UA) NORMAL (Normal); URINE LEUKOCYTE ESTERASE 3+ Leu/uL (Negative); URINE PROTEIN NEGATIVE (NEGATIVE)
[2018-05-22 16:48] LABS: INR 1.1; PROTHROMBIN TIME 11.5 SECONDS (9.7-12.2)
[2018-05-22 16:54] LABS: ALBUMIN 4.5 g/dL (3.5-5.0); BLOOD UREA NITROGEN 9 mg/dL (7-17); CALCIUM 9.1 mg/dl (8.6-10.4); GFR NON-AFRICAN AMERICAN > 60
[2018-05-22 16:55] LABS: ALB/GLOB RATIO 1.3 (1.0-2.1); ALT/SGPT 80 U/L (9-52); AST/SGOT 64 U/L (14-36)
--- NOTE | 2018-05-22 17:04 | C.PDOC ---
History Of Present Illness 28 y/o female presents to the ED complaining of painless rectal bleeding for the last 3 days. States she notices bleeding with and without stool. No nausea or vomiting. Patient reports while she had hemorrhoids, but they have not bothered her since. Otherwise she denies any abdominal pain, chest pain, SOB, dizziness, or weakness. Time Seen by Provider: 05/22/18 15:08 Chief Complaint (Nursing): GI Problem History Per: Patient History/Exam Limitations: no limitations Onset/Duration Of Symptoms: Days (x3) Current Symptoms Are (Timing): Still Present Number Of Bleeding Episodes: Unknown Associated Symptoms: Rectal Bleeding Past Medical History Reviewed: Historical Data, Nursing Documentation, Vital Signs Vital Signs: Last Vital Signs Temp 98.5 F 05/22/18 15:02 Pulse 95 H 05/22/18 15:02 Resp 18 05/22/18 15:02 BP 119/84 05/22/18 15:02 Pulse Ox 100 05/22/18 15:02 - Medical History PMH: Anemia (vitamin b intake), Asthma, Hyperthyroidism, Hypothyroidism Denies: Chronic Kidney Disease Surgical History: Tonsillectomy - [facility] INCISE BARTHOLIN'S GLAND (08/22/12) LOCAL DESTR OVA LES NEC (02/20/14) Family History: States: Unknown Family Hx - Social History Hx Tobacco Use: No Hx Alcohol Use: Yes Hx Substance Use: No - Immunization History Hx Tetanus Toxoid Vaccination: No Hx Influenza Vaccination: No Hx Pneumococcal Vaccination: No Review Of Systems Except As Marked, All Systems Reviewed And Found Negative. Constitutional: Negative for: Fever, Sweats, Weakness Eyes: Negative for: Vision Change Cardiovascular: Negative for: Chest Pain, Palpitations Respiratory: Negative for: Shortness of Breath Gastrointestinal: Positive for: Hematochezia, Other (Rectal bleeding). Negative for: Vomiting, Abdominal Pain, Diarrhea, Rectal Pain Neurological: Negative for: Weakness, Numbness, Dizziness Physical Exam - Physical Exam Appears: Non-toxic, No Acute Distress Skin: Warm, Dry, No Rash Head: Atraumatic, Normacephalic Eye(s): bilateral: Normal Inspection, PERRL, EOMI Oral Mucosa: Moist Neck: Normal ROM Chest: Symmetrical Cardiovascular: Rhythm Regular, No Murmur Respiratory: Normal Breath Sounds, No Rales, No Rhonchi, No Wheezing Gastrointestinal/Abdominal: Soft, No Tenderness, No Distention, No Guarding Rectal: Heme Positive (brown stool), Hemorrhoids (external and internal), No Mas s Extremity: Normal ROM, No Calf Tenderness, No Swelling Pulses: Left Dorsalis Pedis: Normal, Right Dorsalis Pedis: Normal Neurological/Psych: Oriented x3, Normal Speech ED Course And Treatment - Laboratory Results Result Diagrams: 05/22/18 16:35 05/22/18 16:35 Lab Results: PT 11.5 SECONDS (9.7-12.2) 05/22/18 16:35 INR 1.1 05/22/18 16:35 APTT 31 SECONDS (21-34) 05/22/18 16:35 Total Bilirubin 1.1 mg/dL (0.2-1.3) 05/22/18 16:35 AST 64 U/L (14-36) H 05/22/18 16:35 ALT 80 U/L (9-52) H 05/22/18 16:35 Alkaline Phosphatase 105 U/L (38-126) 05/22/18 16:35 Total Protein 7.9 g/dL (6.3-8.3) 05/22/18 16:35 Albumin 4.5 g/dL (3.5-5.0) 05/22/18 16:35 Globulin 3.4 gm/dL (2.2-3.9) 05/22/18 16:35 Albumin/Globulin Ratio 1.3 (1.0-2.1) 05/22/18 16:35 Urine Color Yellow (YELLOW) 05/22/18 16:35 Urine Clarity Hazy (Clear) 05/22/18 16:35 Urine pH 5.0 (5.0-8.0) 05/22/18 16:35 Ur Specific [place] 1.015 (1.003-1.030) 05/22/18 16:35 Urine Protein Negative mg/dL (NEGATIVE) 05/22/18 16:35 Urine Glucose (UA) Normal mg/dL (Normal) 05/22/18 16:35 Urine Ketones Negative mg/dL (NEGATIVE) 05/22/18 16:35 Urine Blood Negative (NEGATIVE) 05/22/18 16:35 Urine Nitrate Negative (NEGATIVE) 05/22/18 16:35 Urine Bilirubin Negative (NEGATIVE) 02/23/19 16:35 Urine Urobilinogen 2.0 mg/dL (0.2-1.0) H 05/22/18 16:35 Ur Leukocyte Esterase 3+ Eri/uL (Negative) H 05/22/18 16:35 Urine WBC (Auto) 75 /hpf (0-5) H 05/22/18 16:35 Urine RBC (Auto) 13 /hpf (0-3) H 05/22/18 16:35 Ur Squamous Epith Cells 44 /hpf (0-5) H 05/22/18 16:35 Urine Bacteria Rare (<OCC) 05/22/18 16:35 Urine HCG, Qual Negative (NEGATIVE) 05/22/18 16:35 Urine HCG, Qual Negative (NEGATIVE) 05/22/18 16:35 O2 Sat by Pulse Oximetry: 100 (RA) Pulse Ox Interpretation: Normal Progress Note: Labs reviewed, no anemia, stiool is brown, heme positive. Patient is not actively bleeding, abdomen is soft and not tender. Patient tolerates po. Patient is stable to be d/c home with GI follow up. Disposition - Disposition Disposition: HOME/ ROUTINE Disposition Time: 18:38 Condition: STABLE Additional Instructions: Follow up with PMD and Engineering Design Manager within 1-2 days . Return to ED if feel worse. Prescriptions: Nitrofurantoin Macrocrystals [Macrobid] 1 cap PO BID #14 cap Instructions: Hemorrhoids, Bloody Stools Forms: [facility] (Belarusian) - Clinical Impression Clinical Impression: Rectal bleeding, Bleeding hemorrhoid, UTI (urinary tract infection) - PA / HEALTH OCCUPATIONS TEACHER / Resident Statement MD/DO has reviewed & agrees with the documentation as recorded. - Scribe Statement The provider has reviewed the documentation as recorded by the Maksim Hawthorne All medical record entries made by the Maksim were at my direction and personally dictated by me. I have reviewed the chart and agree that the record accurately reflects my personal performance of the history, physical exam, medical decision making, and the department course for this patient. I have also personally directed, reviewed, and agree with the discharge instructions and disposition.
[2018-05-22 19:01] VITALS: BP 113/77; PULSE 89; RESP 16; TEMP 98.9
[2018-05-22 19:02] VITALS: O2SAT 100
== END 2018-05-22 19:02 | disposition home or self-care (01) ==
LOC: C.ER 14:56
DX: K62.5 Hemorrhage of anus and rectum (principal); K64.9 Unspecified hemorrhoids; N39.0 Urinary tract infection, site not specified
CPT/HCPCS: 80053; 81001; 84703; 85025; 85610; 85730; 99284; G0328

== ENCOUNTER 2018-07-04 20:05 | Emergency (ER) | payer MEDICAID ==
[2018-07-04 20:06] VITALS: BMI 43.7
[2018-07-04 20:17] VITALS: O2SAT 99
[2018-07-04] MEDS ORDERED: Sodium Chloride 0.9% 1,000 ML IV ONE (20:37)
[2018-07-04] MEDS ORDERED: Sodium Chloride 0.9% 1,000 ML ONE (20:43)
[2018-07-04] MEDS ORDERED: Iodixanol 320 MG/ML 100 ML BOTTLE IV ONE (20:58)
[2018-07-04 21:01] LABS: BASO # 0.1 K/uL (0.0-0.2); BASO % 1.2 % (0.0-2.0); EOS # 0.2 K/uL (0.0-0.7); EOS % 2.4 % (0.0-4.0); HEMOGLOBIN 11.7 g/dL (11.0-16.0); LYMPH % 28.5 % (20.0-40.0); MEAN CORPUSCULAR HEMOGLOBIN 27.5 pg (27.0-31.0); MEAN CORPUSCULAR HGB CONC 33.1 g/dL (33.0-37.0); MEAN PLATELET VOLUME 9.6 fL (7.2-11.7); MONO # 0.4 K/uL (0.0-0.8); MONO % 5.7 % (0.0-10.0); NEUT # 4.3 K/uL (1.8-7.0); NEUT % 62.2 % (50.0-75.0); NRBC % 0.1 % (0.0-2.0); RBC 4.27 Mil/uL (3.80-5.20); RED CELL DISTRIBUTION WIDTH 14.5 % (11.5-14.5); WHITE BLOOD COUNT 6.9 K/uL (4.8-10.8)
[2018-07-04 21:02] LABS: MEAN CELL VOLUME 83.1 fL (81.0-99.0)
[2018-07-04 21:34] LABS: ALB/GLOB RATIO 1.3 (1.0-2.1); ALBUMIN 4.4 g/dL (3.5-5.0); BLOOD UREA NITROGEN 13 mg/dL (7-17); CALCIUM 9.3 mg/dl (8.6-10.4); GFR NON-AFRICAN AMERICAN > 60; LIPASE 62 U/L (23-300)
[2018-07-04 21:54] LABS: ALT/SGPT 57 U/L (9-52); AST/SGOT 57 U/L (14-36)
[2018-07-05 00:08] VITALS: BP 106/74; PULSE 70; RESP 14; TEMP 97.5
--- NOTE | 2018-07-05 04:45 | C.PDOC ---
History Of Present Illness 28 year old female presents to the ED for evaluation of right-sided abdominal pain wihch began two days ago. Patient also reports nausea. Patient reports she has a history of hemorrhoids and states she occasionally sees blood in her stool. Patient denies fever, chills, vomiting, blood in urine or recent changes in diet. Time Seen by Provider: 07/04/18 20:17 Chief Complaint (Nursing): Abdominal Pain History Per: Patient History/Exam Limitations: no limitations Onset/Duration Of Symptoms: Hrs Current Symptoms Are (Timing): Still Present Location Of Pain/Discomfort: Other (right-sided ) Quality Of Discomfort: "Pain" Associated Symptoms: Nausea. denies: Fever, Chills, Vomiting, Diarrhea, Urinary Symptoms Additional History Per: Patient Abnormal Vaginal Bleeding: No Past Medical History Reviewed: Historical Data, Nursing Documentation, Vital Signs Vital Signs: Last Vital Signs Temp 97.5 F L 07/05/18 00:07 Pulse 70 07/05/18 00:07 Resp 14 07/05/18 00:07 BP 106/74 07/05/18 00:07 Pulse Ox 99 07/05/18 00:07 - Medical History PMH: Anemia (vitamin b intake), Asthma, Hyperthyroidism, Hypothyroidism Denies: Chronic Kidney Disease Surgical History: Tonsillectomy - [facility] Procedures INCISE BARTHOLIN'S GLAND (08/22/12) LOCAL DESTR OVA LES NEC (02/20/14) Family History: States: Unknown Family Hx - Social History Hx Tobacco Use: No Hx Alcohol Use: Yes Hx Substance Use: No - Immunization History Hx Tetanus Toxoid Vaccination: No Hx Influenza Vaccination: No Hx Pneumococcal Vaccination: No Review Of Systems Constitutional: Negative for: Fever, Chills Gastrointestinal: Positive for: Nausea, Abdominal Pain (right-sided ). Negative for: Vomiting, Diarrhea Genitourinary: Negative for: Hematuria Physical Exam - Physical Exam Appears: Non-toxic, No Acute Distress Skin: Normal Color, Warm, Dry Head: Atraumatic, Normacephalic Eye(s): bilateral: Normal Inspection, PERRL, EOMI Oral Mucosa: Dry (mild ) Neck: Supple Chest: Symmetrical, No Deformity, No Tenderness Cardiovascular: Rhythm Regular, No Murmur Respiratory: Normal Breath Sounds, No Rales, No Rhonchi, No Wheezing Gastrointestinal/Abdominal: Soft, Tenderness (mild, right-sided ), No Guarding, No Rebound Extremity: Normal ROM, Capillary Refill (less than 2 seconds ) Neurological/Psych: Oriented x3, Normal Speech, Normal Cognition ED Course And Treatment - Laboratory Results Result Diagrams: 07/04/18 20:55 07/04/18 20:55 Lab Results: Total Bilirubin 0.7 mg/dL (0.2-1.3) 07/04/18 20:55 AST 57 U/L (14-36) H 07/04/18 20:55 ALT 57 U/L (9-52) H D 07/04/18 20:55 Alkaline Phosphatase 84 U/L (38-126) 07/04/18 20:55 Total Protein 7.8 g/dL (6.3-8.3) 07/04/18 20:55 Albumin 4.4 g/dL (3.5-5.0) 07/04/18 20:55 Globulin 3.4 gm/dL (2.2-3.9) 07/04/18 20:55 Albumin/Globulin Ratio 1.3 (1.0-2.1) 07/04/18 20:55 Lipase 62 U/L (23-300) 07/04/18 20:55 Beta HCG, Quant < 2.39 mIU/ML 07/04/18 20:55 O2 Sat by Pulse Oximetry: 99 (on RA ) Pulse Ox Interpretation: Normal - CT Scan/US CT A/P Other Rad Studies (CT/US): Read By Radiologist, Radiology Report Reviewed CT/US Interpretation: EXAM: CT Abdomen and Pelvis without IV contrast. CLINICAL HISTORY: Right sided abd pain. TECHNIQUE: Axial computed tomography images of the abdomen and pelvis without intravenous contrast. 0.00 mGy-cm. CONTRAST: Without. COMPARISON: Comparison is made to prior CT abdomen and pelvis examination dated 04/24/2018. Additionally, the report was reviewed. FINDINGS: LUNG BASES: The lung bases appear clear. No pleural effusions are seen. LIVER: there is again noted to be mild hepatomegaly. The liver measured 17.0 cm in the midclavicular line. GALLBLADDER AND BILE DUCTS: The gallbladder appears within normal limits. No radioopaque gallstones are seen. No biliary ductal dilatation is evident. PANCREAS: Unremarkable. SPLEEN: Borderline splenomegaly. The spleen measured 13.5 cm from anterior to posterior pole. ADRENAL GLANDS: Unremarkable. KIDNEYS, URETERS, AND BLADDER: The kidneys appear within normal limits. There is no hydronephrosis or hydroureter. No urinary calculi are seen. The urinary bladder appeared normal in size and configuration. STOMACH AND BOWEL: Unremarkable appearance of the stomach and bowel. No evidence of bowel obstruction. No evidence suggesting enteritis or colitis. APPENDIX: No evidence of acute appendicitis on CT examination. PERITONEUM: No free fluid. No free air. LYMPH NODES: No lymphadenopathy is evident. REPRODUCTIVE: The previously identified right ovarian cyst has resolved. There is a residual left ovarian cyst again noted measuring approximately 2.9 x 4.1 cm in AP and transverse dimensions respectively. VASCULATURE: No evidence of abdominal aortic aneurysm. BONES: No aggressive appearing osseous lesion. No acute osseous pathology evident. IMPRESSION: 1. No acute intra-abdominal or pelvic abnormality. 2. Mild hepatomegaly. 3. Bor derline splenomegaly. 4. Interval resolution of right ovarian cyst. A residual 2.9 x 4.1 cm left ovarian cyst is noted. Medical Decision Making Medical Decision Making: Bloodwork, urinalysis, CT A/P ordered and reviewed. Pepcid IVP, Zofran IVP and IV Fluids given. On reassessment, patient is resting comfortably, showing no signs of distress and reports an improvement in her symptoms. Patient is stable for discharge and is advised to f/u with her PMD within 1-2 days for further evaluation. Disposition - Disposition Referrals: [facility] [Outside] [facility] [Outside] Disposition: HOME/ ROUTINE Disposition Time: 23:35 Condition: IMPROVED Additional Instructions: AKILAH FRIAS, thank you for letting us take care of you today. The emergency medical care you received today was directed at your acute symptoms. If you were prescribed any medication, please fill it and take as directed. It may take several days for your symptoms to resolve. Return to the Emergency Department if your symptoms worsen, do not improve, or if you have any other problems. Please contact your doctor or call one of the physicians/clinics you have been referred to that are listed on the Patient Visit Information form that is included in your discharge packet. Bring any paperwork you were given at discharge with you along with any medications you are taking to your follow up visit. Our treatment cannot replace ongoing medical care by a primary care provider outside of the emergency department. Thank you for allowing the [facility] team to be part of your care today. Follow up with your primary care doctor or our clinic this week for re- evaluation and further management. Prescriptions: Famotidine [Pepcid] 20 mg PO DAILY #10 tab Instructions: Gastritis (DC) Forms: [facility] (Nigerian) - Clinical Impression Clinical Impression: Gastritis - Scribe Statement The provider has reviewed the documentation as recorded by the Scribe (Machelle Chou) Provider Attestation: All medical record entries made by the Scribe were at my direction and personally dictated by me. I have reviewed the chart and agree that the record accurately reflects my personal performance of the history, physical exam, medical decision making, and the department course for this patient. I have also personally directed, reviewed, and agree with the discharge instructions and disposition.
--- NOTE | 2018-07-05 11:14 | CT ---
PROCEDURE: CT Abdomen and Pelvis without Oral or IV contrast. HISTORY: right sided abdominal pain COMPARISON: CT abdomen pelvis with contrast performed 04/24/18 TECHNIQUE: Contiguous axial images of the abdomen and pelvis. No oral or IV contrast administered. Coronal and Sagittal reformats generated and reviewed. Radiation dose: Total exam DLP = 1255.11 mGy-cm. This CT exam was performed using one or more of the following dose reduction techniques: Automated exposure control, adjustment of the mA and/or kV according to patient size, and/or use of iterative reconstruction technique. FINDINGS: There is limited evaluation of the solid organs without the administration of IV contrast. LOWER THORAX: No visible consolidation, pleural effusion, or pneumothorax. LIVER: Unremarkable. GALLBLADDER AND BILE DUCTS: Unremarkable. PANCREAS: Unremarkable. SPLEEN: Splenomegaly. ADRENALS: Unremarkable. KIDNEYS AND URETERS: No hydronephrosis or obstructing renal calculus. BLADDER: The urinary bladder appears unremarkable. REPRODUCTIVE: Uterus is present. 2.2 x 3.9 cm probable left ovarian cyst. APPENDIX: The appendix appears within normal limits of caliber. No secondary signs of acute appendicitis. BOWEL: The stomach is nondistended. Lack of oral contrast limits evaluation for bowel pathology. The bowel loops appear within normal limits of caliber without evidence of intestinal obstruction. PERITONEUM: No significant free fluid. No definite free air. LYMPH NODES: Sub cm mediastinal/intraperitoneal lymph nodes, nonspecific. VASCULATURE: No significant atherosclerotic calcifications of the aorta appreciated. No aortic aneurysm. BONES: No acute osseous abnormality is detected. OTHER FINDINGS: None. IMPRESSION: Splenomegaly. 2.2 x 3.9 cm probable left ovarian cyst. Pelvic ultrasound may be considered for further evaluation if indicated. Additional findings as above. Preliminary impression was provided by [employer].
== END 2018-07-05 00:08 | disposition home or self-care (01) ==
LOC: C.ER 20:05
DX: K29.70 Gastritis, unspecified, without bleeding (principal); D64.9 Anemia, unspecified
CPT/HCPCS: 74176; 80053; 83690; 84702; 85025; 96361; 96374; 96375; 99283; J2405; J7030